=== PATIENT | male | born 2000 | race Caucasian/White ===

== ENCOUNTER 2019-06-10 01:38 | Inpatient (IN) | payer BC, SELFPAY ==
[~2019-06-10] VITALS: Ht 180.3 cm; Wt 75.5 kg
[2019-06-10 02:06] LABS: HEMATOCRIT 46.9 % (42.0-52.0); HEMOGLOBIN 16.6 g/dl (13.5-17.5); MEAN CORPUSCULAR HEMOGLOBIN 28.2 pg (27.0-33.0); MEAN CORPUSCULAR HGB CONC 35.4 g/dl (32.0-36.5); MEAN CORPUSCULAR VOLUME 79.6 fl (80.0-96.0); PLATELET COUNT, AUTOMATED 373 10^3/uL (150-450); RED BLOOD COUNT 5.89 10^6/uL (4.30-6.10); WHITE BLOOD COUNT 7.9 10^3/uL (4.0-10.0)
[2019-06-10 02:33] LABS: AMPHETAMINES LEVEL URINE NEGATIVE (NEGATIVE); BARBITURATES URINE NEGATIVE (NEGATIVE); BENZODIAZEPINES URINE NEGATIVE (NEGATIVE); CANNABINOIDS URINE NEGATIVE (NEGATIVE); COCAINE METABOLITE URINE NEGATIVE (NEGATIVE); METHADONE URINE NEGATIVE (NEGATIVE); OPIATES URINE NEGATIVE (NEGATIVE); PHENCYCLIDINE URINE NEGATIVE (NEGATIVE)
[2019-06-10 02:54] LABS: ACETAMINOPHEN LEVEL < 2.0 UG/ML (10.0-30.0); ALBUMIN 4.6 GM/DL (3.2-5.2); ALT/SGPT 28 U/L (12-78); BILIRUBIN,DIRECT 0.1 MG/DL (0.0-0.2); BILIRUBIN,TOTAL 0.4 MG/DL (0.2-1.0); BLOOD UREA NITROGEN 9 MG/DL (7-18); CALCIUM LEVEL 9.5 MG/DL (8.5-10.1); CARBON DIOXIDE LEVEL 26 MEQ/L (21-32); CHLORIDE LEVEL 109 MEQ/L (98-107); CREATININE FOR GFR 0.92 MG/DL (0.70-1.30); ETHYL ALCOHOL (ETHANOL) 0.069 % (0.000-0.010); GLUCOSE, FASTING 96 MG/DL (70-100); POTASSIUM SERUM 3.9 MEQ/L (3.5-5.1); SALICYLATE LEVEL 2.7 MG/DL (5.0-30.0); SODIUM LEVEL 145 MEQ/L (136-145); TOTAL PROTEIN 8.6 GM/DL (6.4-8.2)
[2019-06-10] MEDS ORDERED: traZODone 50 MG TAB PO PRN (17:30)
[2019-06-10] MEDS ORDERED: ACETAMINOPHEN TAB 650MG DOSE (2X325MG) PO PRN (17:30)
[2019-06-10] MEDS ORDERED: OLANZapine ORAL DISINTEGRATING TAB 5MG PO PRN (17:30)
[2019-06-10] MEDS ORDERED: MOM 30ML SUSPENSION UDC PO PRN (17:30)
[2019-06-10] MEDS ORDERED: MAALOX 30 ML SUSP *UDC PO PRN (17:30)
[2019-06-10 19:00] VITALS: BP 125/81
[2019-06-11 06:02] VITALS: BP 117/57
--- NOTE | 2019-06-11 09:47 | MHHPEPDOC ---
[facility] History & Physical History and Physical DATE OF ADMISSION: Jun 10, 2019 at 17:28 New Patient Keaton Shaikh MRN: N/A Date of : N/A Date of Service: 06/11/2019 Chief Complaint "I was drunk driving." History of Present Illness The patient a 19-year-old man with a history of depression, anxiety presents after using multiple different substances including Sunshine and alcohol driving his car at [place] after an argument with his girlfriend in [place]. He report that he kept driving and was pulled over by the police and subsequently brought into the ER as he was acting strange and admitted out of an abundance of caution. The patient was met with he described that he had difficulties with low mood, hopelessness, fatigue, and loss of interest, but in general when he is not using has only depression, anxiety with no psychosis. He reports multiple stressors and has difficulty with his current girlfriend. Review Of Systems Depression: As above. Anxiety: As above. Pamela: The patient denies any episodes of euphoria/dysphoria associated with decreased need for sleep, hedonism, talkatively or impulsivity lasting longer than 5 days. Psychotic: The patient denies any experiences of auditory or visual hallucinations. They deny any episodes of paranoia or delusional thinking in the past Trauma: The patient denies any traumatic events associated with nightmares or intrusive thoughts. Borderline: Not screened at this time due to substance use. Past Psychiatric History Has a history of depression, anxiety has not been tried on any medications. No history of inpatient admissions and no suicide attempts. Allergies Please see below. Family Psychiatric History Reports a family history of mental health problems, but is unspecific. Social History Patient grew up in the [place] area currently unemployed, graduated high school. Report some legal difficulties due to drugs. Reports that he currently lives with mother. Reports that he had grown up with mother after father had left and mother had series of boyfriends, which was difficult and chaotic. Substance Abuse History Reports an extensive history of Sunshine, alcohol and other drug use including opioids. Medical History Patient has no significant past medical history. Mental Status Examination General: Well dressed with good hygiene Speech: Spontaneous and fluid Thought processes: Linear and logical MSK: Smooth and coordinated gait, no signs of tremors or involuntary orofacial movements Thought content: Future orientated Abstract reasoning, and computation: Intact Description of associations: Intact Description of abnormal or psychotic thoughts: Denies any suicidal or homicidal ideation. Denies any auditory or visual hallucinations. Does not appear to be responding to internal stimuli. Does not appear to be endorsing any bizarre or paranoid ideation. Judgment: Likely chronically limited. Insight: Likely chronically limited. Orientation: Alert and orientated 3 Cognition: Grossly normal Recent and remote memory: Intact Attention span and concentration: Intact Fund of knowledge: Adequate Mood: "okay" Affect: Mildly dysthymic. Diagnoses Unspecified depressive disorder. Substance-induced versus adjustment. Alcohol use disorder, unspecified. Hallucinogen use disorder, severe. Cannabis use disorder, moderate. Tobacco use disorder, mild. Opioid use disorder, unspecified. Assessment and Plan Unspecified depressive disorder: We will start Wellbutrin 150 mg daily. Discussed the risks, benefits and potential side effects, screen is negative for eating disorder and seizure disorders. Alcohol use disorder: Monitor for any dysregulation and CIWA protocol will be initiated. Hallucinogen, cannabis, and opioid use disorder: Recommend outpatient substance abuse treatment. Tobacco use: Offer nicotine replacement. Disposition Patient will be observed overnight and likely retained over the weekend. First start with medications and then subsequently will be discharged on Saturday due to his severely impairing depression and substance abuse. Problem List 1. Altered thoughts to substance use. Initial Treatment Plan 1. Patient was admitted on a 9.39 legal status. 2. Complete history was obtained. 3. With patients permission, family will be contacted and database will be expanded. 4. Patients medication regimen will be reviewed and changed accordingly. 5. Patient will be provided with protected environment. 6. Patient will be treated with individual, group, and milieu therapies. 7. Patient will receive supportive psych-education. 8. Discharge planning will commence immediately. 9. Outpatient follow-up treatment will be strongly recommended. 10. The initial treatment plan will focus initially on: Estimated Length Of Stay 3 days. Time Spent 70 minutes with greater than 50% of time spent on counseling/coordination of care. Vital Signs Vital Signs Date Time Temp Pulse Resp B/P (MAP) Pulse Ox O2 Delivery O2 Flow Rate FiO2 06/11/19 08:19 Room Air 06/11/19 06:02 97.4 79 16 117/57 (81) 98 Medications No Active Prescriptions or Reported Meds Allergies Coded Allergies: cephalexin (Verified Allergy, Mild, 06/10/19) HIVES A-FIB/CHADSVASC A-FIB History Current/History of A-Fib/PAF?: No MIRIAM WILSON DO Jun 11, 2019 09:47
[2019-06-11] MEDS ORDERED: buPROPion **XL** TABLET 150MG (WELLBUTRIN XL) PO ONE (10:45)
--- NOTE | 2019-06-11 11:52 | HPEPDOC ---
[facility] Medical History & Physical Date of Admission Jun 11, 2019 Date of Service: Jun 11, 2019 History and Physical CHIEF COMPLAINT: Admitted to inpatient mental health unit for suicidal ideation HISTORY OF PRESENT ILLNESS: 19-year-old male with past medical history of ADHD and polysubstance abuse is admitted to inpatient mental health unit for suicidal ideation. Patient has been under a lot of stress over the past month due to cor onavirus, took multiple illicit substances including Sunshine, cocaine and benzodiazepines, with the intention to hurt himself. His girlfriend called the police who then brought him to the hospital. Patient is asymptomatic at this time, without any complaints, denies suicidal ideation currently, no shortness of breath, chest pain, nausea, vomiting, abdominal pain or diarrhea. 10 point review of system is negative except for above PAST MEDICAL HISTORY: 1. ADHD. 2. Polysubstance abuse. PAST SURGICAL HISTORY: 1. None. SOCIAL HISTORY: He denies cigarette smoking. Occasional alcohol use. Polysubstance abuse FAMILY HISTORY: Mother with hypothyroidism ALLERGIES: Please see below. HOME MEDICATIONS: Please see below. PHYSICAL EXAMINATION: VITAL SIGNS: Please see below. GENERAL: No distress HEENT: Normocephalic, atraumatic, moist mucous membranes NECK: Supple CARDIOVASCULAR EXAMINATION: S1, S2, no murmurs RESPIRATORY EXAMINATION: Clear to auscultation, no wheezing ABDOMINAL EXAMINATION: Soft, nontender, nondistended, positive bowel sounds EXTREMITIES: Range of motion intact SKIN: No rash NEUROLOGICAL EXAMINATION: Alert and oriented 3, no focal deficits PSYCHIATRIC EXAMINATION: Calm and cooperative LABORATORY DATA: See below. MICROBIOLOGY: Please see below. ASSESSMENT: 19-year-old male with past medical history of a VAC and polysubstance abuse is admitted to inpatient mental health unit for suicidal ideation. PLAN: 1. Suicidal ideation. Management as per primary team 2. Polysubstance abuse. No signs of active withdrawal at this time. Patient has no active medical issues at this time, please reconsult as needed Vital Signs Vital Signs Date Time Temp Pulse Resp B/P (MAP) Pulse Ox O2 Delivery O2 Flow Rate FiO2 06/11/19 08:19 Room Air 06/11/19 06:02 97.4 79 16 117/57 (77) 98 Home Medications No Active Prescriptions or Reported Meds Allergies Coded Allergies: cephalexin (Verified Allergy, Mild, 06/10/19) HIVES A-FIB/CHADSVASC A-FIB History Current/History of A-Fib/PAF?: No ANNY MOTTA MD Jun 11, 2019 11:52
[2019-06-11 18:39] VITALS: BP 123/67
[2019-06-12 06:25] VITALS: BP 120/60
[2019-06-12] MEDS: buPROPion **XL** TABLET 150MG (WELLBUTRIN XL) PO SCH (08:50)
--- NOTE | 2019-06-12 09:23 | MHIPNPDOC ---
[facility] Progress Note Progress Note Inpatient Progress Note Keaton Shaikh MRN: N/A Date of : N/A Date of Service: 06/12/2019 History of Present Illness The patient a 19-year-old man with a history of depression, anxiety presents after using multiple different substances including Sunshine and alcohol [place] his car at [place] after an argument with his girlfriend in [place]. He report that he kept driving and was pulled over by the police and subsequently brought into the ER as he was acting strange and admitted out of an abundance of caution. The patient was met with he described that he had difficulties with low mood, hopelessness, fatigue, and loss of interest, but in general when he is not using has only depression, anxiety with no psychosis. He reports multiple stressors and has difficulty with his current girlfriend. Interval History The patient is met with today. He has made some great improvements. He says his depression and fatigue have improved well since starting the Wellbutrin and feels much improved. He reports that he feels much more able to cope with his stressors. He reports that he is doing much improved. He is attending treatment with no major behavioral problems. No suicidal thoughts overnight. Review Of Systems General: Denies fever or appetite changes Cardiovascular: Denies Chest pain or palpations GI: Denies Nausea, vomiting, or bowel changes Respiratory: Denies shortness of breath or cough Neuro: Denies dizziness, tremors Derm: Denies any rashes or pruritus : Denies any dysuria or urinary problems MSK: Denies any muscle tightness or stiffness HEENT: Denies any vision changes or headaches Psychotherapy None on this visit. Vital Signs Reviewed. Mental Status Examination General: Well dressed with good hygiene Speech: Spontaneous and fluid Thought processes: Linear and logical MSK: Smooth and coordinated gait, no signs of tremors or involuntary orofacial movements Thought content: Future orientated Abstract reasoning, and computation: Intact Description of associations: Intact Description of abnormal or psychotic thoughts: Denies any suicidal or homicidal ideation. Denies any auditory or visual hallucinations. Does not appear to be responding to internal stimuli. Does not appear to be endorsing any bizarre or paranoid ideation. Judgment: fair Insight: fair Orientation: Alert and orientated 3 Cognition: Grossly normal Recent and remote memory: Intact Attention span and concentration: Intact Fund of knowledge: Adequate Mood: "okay" Affect: Euthymic with a full range Diagnoses Unspecified depressive disorder. Substance-induced versus adjustment. Alcohol use disorder, unspecified. Hallucinogen use disorder, severe. Cannabis use disorder, moderate. Tobacco use disorder, mild. Opioid use disorder, unspecified. Assessment and Plan Unspecified depressive disorder: Continue Wellbutrin 150 mg daily. Alcohol use disorder: Monitor for any dysregulation and CIWA protocol will be initiated. Hallucinogen, cannabis, and opioid use disorder: Recommend outpatient substance abuse treatment. Tobacco use: Offer nicotine replacement. Disposition Discharge on Saturday if it continues to improve. Time Spent 15 minutes. Saturday Vital Signs Vital Signs Date Time Temp Pulse Resp B/P (MAP) Pulse Ox O2 Delivery O2 Flow Rate FiO2 06/12/19 06:25 98.7 73 16 120/60 (80) 97 Room Air Current Medications Current Medications Medications (Trade) Dose Ordered Sig/Shalonda Route PRN Reason Start Time Stop Time Status Last Admin Dose Admin Acetaminophen (Tylenol Tab) 650 mg Q6HP PRN PO HEADACHE or DISCOMFORT 06/10/19 17:30 Al Hydrox/Mg Hydrox/Simethicone (Mylanta) 30 ml Q4HP PRN PO HEARTBURN/INDIGESTION 06/10/19 17:30 Bupropion HCl (Wellbutrin Xl) 150 mg QAM PO 06/12/19 09:00 06/12/19 08:50 Home Med (Med Rec Complete!) ASDIRECTED XX 06/10/19 04:15 06/10/19 04:13 DC Magnesium Hydroxide (Milk Of Magnesia) 30 ml DAILYPRN PRN PO CONSTIPATION 06/10/19 17:30 Olanzapine (ZyPREXA ZYDIS) 5 mg Q4HP PRN PO AGITATION/ANXIETY 06/10/19 17:30 Trazodone HCl (Desyrel) 50 mg QHSP PRN PO INSOMNIA 06/10/19 17:30 Allergies Coded Allergies: cephalexin (Verified Allergy, Mild, 06/10/19) MIRIAM QUIROZ DO June 12, 2019 09:23
[2019-06-12 16:36] VITALS: BP 139/76
[2019-06-13 06:26] VITALS: BP 141/67
[2019-06-13] MEDS: buPROPion **XL** TABLET 150MG (WELLBUTRIN XL) PO SCH (08:47)
[2019-06-13 16:23] VITALS: BP 137/73
[2019-06-14 06:34] VITALS: BP 135/63
[2019-06-14] MEDS: buPROPion **XL** TABLET 150MG (WELLBUTRIN XL) PO SCH (08:24)
--- NOTE | 2019-06-14 14:52 | MHIPN ---
DATE: 06/13/2019 This is a telemedicine video assessment to followup. He is seen in the presence of staff. VITAL SIGNS: Blood pressure 141/67, pulse 85, temperature 97.9. CHIEF COMPLAINT: Says feels better. SUBJECTIVE: Says feels better in that he is more rested. Sleep has improved. Says has not slept for several nights. 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 Feels less stressed, less anxious. Says is in touch with family, who are in [place]. MENTAL STATUS EXAMINATION: He is neat. He is cooperative. No agitation. No psychomotor retardation. He is coherent. Affect is of fair range. Denies any active suicidal thoughts or intents. No homicidal ideas or intents. Currently no evidence of any psychosis. Cognition is grossly intact. Judgment possibly somewhat improved. Insight is fair at best. ASSESSMENT: Unspecified depressive disorder. Alcohol use disorder. Opioid use disorder. Hallucinogen use disorder. PLAN: Continue current care, observations, and the Wellbutrin at the current dose. He was encouraged to participate in activities in the unit. Edited: [facility] 06/14/2019 [id number]
[2019-06-14 16:16] VITALS: BP 134/72
[2019-06-15 06:26] VITALS: BP 90/48
[2019-06-15] MEDS: buPROPion **XL** TABLET 150MG (WELLBUTRIN XL) PO SCH (08:19)
--- NOTE | 2019-06-15 09:10 | MHDSPDOC ---
[facility] Discharge Summary Discharge Summary DATE OF ADMISSION: Jun 10, 2019 at 17:28 DATE OF DISCHARGE: 06/15/19 Discharge Keaton Shaikh MRN: N/A Date of : N/A Date of Service: 06/15/2019 Diagnoses Unspecified depressive disorder. Substance-induced versus adjustment. Alcohol use disorder, unspecified. Hallucinogen use disorder, severe. Cannabis use disorder, moderate. Tobacco use disorder, mild. Opioid use disorder, unspecified. History of Present Illness The patient a 19-year-old man with a history of depression, anxiety presents after using multiple different substances including Sunshine and alcohol driving his car at [place] after an argument with his girlfriend in [place]. He report that he kept driving and was pulled over by the police and subsequently brought into the ER as he was acting strange and admitted out of an abundance of caution . The patient was met with he described that he had difficulties with low mood, hopelessness, fatigue, and loss of interest, but in general when he is not using has only depression, anxiety with no psychosis. He reports multiple stressors and has difficulty with his current girlfriend. Consultants Involved Hospitalist/PCP screening Treatment and Progress On The Unit The patient was admitted to the inpatient mental health unit. His suicidality rapidly resolved. He was started on Wellbutrin 150 mg with positive effects. He did well on the unit and rapidly improved with his depression conditioning further suggesting a substance-induced problem. He may get steroids without any major behavioral problem, so attended groups and generally was amenable with our treatments. He requested to leave and arrangements were made. Discharge Assessment 19-year-old man with likely history of severe substance use presents intoxicated with depression, which rapidly resolved with supportive treatment. The patient at the time of discharge did not meet criteria for involuntary admission/extension due to having a normal mental status exam, fair insight into the situation, They are engaged in the discharge process, as well as being friendly and amenable in behavioral control and havent been engaging in any observed concerning behavior or ideation recently. They decline voluntary extension/admission at this time and must be discharged in good tone, as Im unable to make a case for holding the patient against their will. They may have historical risk factors of admissions and other interactions with psychiatry however, those are not modifiable from a clinical perspective. The patient will need to be discharged in good tone. Mental Status Examination General: Well dressed with good hygiene Speech: Spontaneous and fluid Thought processes: Linear and logical MSK: Smooth and coordinated gait, no signs of tremors or involuntary orofacial movements Thought content: Future orientated Abstract reasoning, and computation: Intact Description of associations: Intact Description of abnormal or psychotic thoughts: Denies any suicidal or homicidal ideation. Denies any auditory or visual hallucinations. Does not appear to be responding to internal stimuli. Does not appear to be endorsing any bizarre or p aranoid ideation. Judgment: fair Insight: fair Orientation: Alert and orientated 3 Cognition: Grossly normal Recent and remote memory: Intact Attention span and concentration: Intact Fund of knowledge: Adequate Mood: "okay" Affect: Euthymic with a full range Follow Up The social work team worked during the predischarge meeting in order to evaluate for further issues of lethality address them fully before discharge. They worked on safety planning with the patient's family members in order to ensure that the patient will have a safe and effective discharge. Time Spent The amount of time spent in the coordination of care for this patient was approximately 45 minutes. M Vital Signs/I&Os Vital Signs Date Time Temp Pulse Resp B/P (MAP) Pulse Ox O2 Delivery O2 Flow Rate FiO2 06/15/19 06:26 97.1 70 18 90/48 (62) 06/14/19 06:34 98 Room Air Medications Scheduled Bupropion Hcl (Bupropion Xl) 150 Mg Tab.er.24h, 150 MG PO QAM for mood for 7 Days, #7 Allergies Coded Allergies: cephalexin (Verified Allergy, Mild, 06/10/19) MIRIAM QUIROZ DO June 15, 2019 09:10
[2019-06-15] MEDS ORDERED: BUPR150T3 PO (10:25)
--- NOTE | 2019-06-16 14:14 | MHIPN ---
DATE: 06/14/2019 VITAL SIGNS: Blood pressure 125/63, pulse 79, temperature 96.8. This is a telemedicine video followup assessment. He is seen in the presence of staff. CHIEF COMPLAINT: Feels better. SUBJECTIVE: Seen for followup. Says has been feeling better, is less anxious, less depressed, feels rested, says had a good night. Has been in touch with family in [place]. Denies any cravings at present. MENTAL STATUS EXAMINATION: Neat. Cooperative. No agitation. No psychomotor retardation. Coherent. Affect restricted in range but shows some reactivity. Denies any thoughts of harming himself or anyone else. Currently no evidence of any psychosis. Does not appear to be internally preoccupied. No delusions elicited. Cognition grossly intact. Judgment and insight somewhat improved. Feels better, more confident, less anxious. PLAN: Continue current care, observations, which includes the bupropion at 150 mg daily. He is given verbal support. Further recommendations will be made depending on the clinical picture, when he sees the assigned psychiatrist tomorrow.
== END 2019-06-15 13:50 | disposition home or self-care (01) | DRG 754 ==
LOC: M ED 01:38 → M ED INP 17:28 → M PSY 18:45
PROVIDERS: ADMIT Psychiatry & Neurology Addiction Medicine; ATTEND Psychiatry & Neurology Addiction Medicine
DX: F32.9 Major depressive disorder, single episode, unspecified (principal); F10.159 Alcohol abuse with alcohol-induced psychotic disorder, unspecified; F43.20 Adjustment disorder, unspecified; F16.20 Hallucinogen dependence, uncomplicated; F12.20 Cannabis dependence, uncomplicated; F17.200 Nicotine dependence, unspecified, uncomplicated; Z88.1 Allergy status to other antibiotic agents